=== PATIENT | female | born 1970 | race Caucasian/White ===

== ENCOUNTER 2020-10-06 08:30 | Outpatient (REF) | payer BC, SELFPAY ==
--- NOTE | ~2020-10-06 | MM_ITS ---
EXAMINATION: MM SCREENING DIGITAL BREAST TOMOSYNTHESIS, BILATERAL CLINICAL INFORMATION: Screening. Asymptomatic. The lifetime risk of breast cancer based on the Tyrer-Cuzick Model is 6.6%. COMPARISON: Mammography: August 11, 2019 and studies dating back to April 15, 2012 TECHNIQUE: Digital breast tomosynthesis is performed in both the craniocaudal and mediolateral oblique views along with computer-aided detection (CAD). Synthesized 2D images are generated from the tomosynthesis. FINDINGS: The breasts are heterogeneously dense, which may obscure small masses (ACR BI-RADS breast composition Category c). There are no significant masses, abnormal calcifications, or other abnormalities. MM/MM tomosynthesis screening BI IMPRESSION: There are no significant changes from prior study. ASSESSMENT: BI-RADS 1: Negative RECOMMENDATION: Routine annual mammography screening. This patient's information was entered into a reminder system with a target due date for their next mammogram.
== END 2020-10-06 08:31 | disposition home or self-care (01) ==
LOC: HO.MAMMO 08:30
PROVIDERS: Visit Provider Internal Medicine
DX: Z12.31 Encounter for screening mammogram for malignant neoplasm of breast (principal)
CPT/HCPCS: 77063; 77067

== ENCOUNTER 2021-06-14 19:57 | Emergency (ER) | payer OTHER, BC, SELFPAY ==
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
[2021-06-14 20:04] VITALS: BP 128/86; BP 130/76; PULSE 76; PULSE 89; RESP 16; TEMP 36.8; O2SAT 100; O2SAT 98; BMI 26.9
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
--- NOTE | 2021-06-14 20:34 | PC.NURSE ---
pt a&o, no sob or chest pain. pt oob with a slight unsteady gait. Attempted to collected urine, pt unable to collect at this time. Pt gone to CT-Scan.
[2021-06-14 21:13] VITALS: BP 134/55; PULSE 72; RESP 14; TEMP 36.7; O2SAT 99
--- NOTE | 2021-06-14 21:23 | PC.NURSE ---
UNABLE TO COLLECTED URINE . PROVIDER IS AWARE. WILL MEDICATE PER MAR.
[2021-06-14] MEDS: Cyclobenzaprine HCl 10 MG TABLET PO (21:28)
[2021-06-14] MEDS: Ketorolac Tromethamine 60 MG/2 ML VIAL IM (21:28)
== END 2021-06-14 21:40 | disposition home or self-care (01) ==
PROVIDERS: Emergency Provider Internal Medicine
DX: S06.0X0A Concussion without loss of consciousness, initial encounter (principal); S39.012A Strain of muscle, fascia and tendon of lower back, initial encounter; S16.1XXA Strain of muscle, fascia and tendon at neck level, initial encounter; V49.9XXA Car occupant (driver) (passenger) injured in unspecified traffic accident, initial encounter; Y93.9 Activity, unspecified; Y92.410 Unspecified street and highway as the place of occurrence of the external cause; Y99.9 Unspecified external cause status
CPT/HCPCS: 70450; 72100; 72125; 96372; 99284; J1885

== ENCOUNTER 2021-12-04 13:52 | Outpatient (REF) | payer BC, SELFPAY ==
--- NOTE | ~2021-12-04 | MM_ITS ---
EXAMINATION: MM SCREENING DIGITAL BREAST TOMOSYNTHESIS, BILATERAL CLINICAL INFORMATION: Screening. Asymptomatic. The lifetime risk of breast cancer based on the Tyrer-Cuzick Model is 7%. COMPARISON: Mammography: 10/06/2020, 08/11/2019, 07/08/2018 TECHNIQUE: Digital breast tomosynthesis is performed in both the craniocaudal and mediolateral oblique views along with computer-aided detection (CAD). Synthesized 2D images are generated from the tomosynthesis. FINDINGS: The breasts are heterogeneously dense, which may obscure small masses (ACR BI-RADS breast composition Category c). There are no significant masses, abnormal calcifications, or other abnormalities. No significant changes from prior studies. No architectural abnormality. The axilla and skin contours are unremarkable. MM/MM tomosynthesis screening BI IMPRESSION: No mammographic evidence of malignancy. ASSESSMENT: BI-RADS 1: Negative RECOMMENDATION: Routine annual mammography screening. This patient's information was entered into a reminder system with a target due date for their next mammogram.
== END 2021-12-04 13:53 | disposition home or self-care (01) ==
LOC: HO.MAMMO 13:52
DX: Z12.31 Encounter for screening mammogram for malignant neoplasm of breast (principal)
CPT/HCPCS: 77063; 77067

== ENCOUNTER 2022-06-01 11:50 | Outpatient (REF) | payer BC, SELFPAY ==
[2022-06-01 12:30] LABS: MANUAL DIFF FLAG NO
[2022-06-01 13:26] LABS: Basophils Percent Auto 0.5 % (0-2); Eosinophils Absolute Auto 0.1 X10*3/uL (0.0-0.4); Eosinophils Percent Auto 0.9 % (0-4); Hematocrit 40.5 % (37.0-47.0); Hemoglobin 13.5 g/dl (12.0-16.0); Imm Gran Abs Auto 0.02 X10*3/uL (0.00-0.03); Imm Gran Pct Auto 0.3 % (0.0-0.4); Lymphocytes Absolute Auto 1.6 X10*3/uL (1.2-4.9); Mean Corpuscular HGB Conc 33.3 g/dl (31.0-35.0); Mean Corpuscular Hemoglobin 32.2 pg (27.0-33.0); Mean Corpuscular Volume 96.7 fL (80.0-98.0); Mean Platelet Volume 9.4 fL (9.4-12.3); Monocytes Absolute Auto 0.7 X10*3/uL (0.1-1.2); Neutrophils Absolute Auto 4.1 x10*3/uL (2.0-8.3); Neutrophils Percent Auto 63.3 % (45-73); Platelet Count 316 X10*3/uL (160-400); Red Blood Count 4.19 X10*6/uL (4.20-5.50); Red Cell Distribution Width 12.2 % (11.0-16.0); White Blood Count 6.5 X10*3/uL (4.8-10.8)
[2022-06-01 13:32] LABS: Appearance Urine Clear; Color Urine Yellow; Glucose Urine UA Negative (Negative); Leukocyte Esterase Urine Negative (Negative); Nitrite Urine Negative (Negative); UMIC TRIGGER UA YES; Urine Blood Trace (Negative); Urine Ketones Negative (Negative); Urine Protein Negative (Neg-Trace)
[2022-06-01 13:37] LABS: Estimated Average Glucose 108 mg/dL; Hemoglobin A1c % 5.4 %
[2022-06-01 13:38] LABS: Bacteria Urine Trace (None Seen); Hyaline Casts Urine 0-2 /LPF (0-2); RBC Urine 0-2 /HPF (0-2); WBC Urine 0-5 /HPF (0-5)
[2022-06-01 13:50] LABS: Alanine Aminotransferase 15 U/L (0-31); Albumin Level 4.6 g/dL (3.5-5.0); Alkaline Phosphatase 65 U/L (39-117); Anion Gap 14 (12-20); Aspartate Amino Transferase 21 U/L (5-31); Bilirubin Total 0.7 mg/dL (0.0-1.0); Blood Urea Nitrogen 12 mg/dL (9-16); C Reactive Protein 0.08 mg/dL (< or = 0.50); Carbon Dioxide 24 mmol/L (22-29); Chloride 104 mmol/L (96-108); Estimated Glomerular Filt Rate > 60; Glucose Random 83 mg/dL (60-115); Lactate Dehydrogenase 180 U/L (122-220); Potassium 4.4 mmol/L (3.3-5.1); Rheumatoid Factor < 15.0 IU/mL (<15.0); Sodium 138 mmol/L (135-145); Total Protein 8.5 g/dL (6.5-8.0)
[2022-06-01 14:07] LABS: Total Protein Urine Random < 7 mg/dL (<12)
[2022-06-01 14:10] LABS: Erythrocyte Sedimentation Rate 11 MM/HR (0-20)
[2022-06-01 14:10] LABS: Thyroid Stimulating Hormone 1.19 uIU/mL (0.32-4.0)
[2022-06-04 09:41] LABS: Thyroid Peroxidase Antibodies 1 IU/mL (<9)
[2022-06-04 11:11] LABS: Complement C3 142 mg/dL (83-193)
[2022-06-04 14:27] LABS: Prot Elec - Albumin 4.7 g/dL (3.8-4.8); Prot Elec - Alpha1 0.3 g/dL (0.2-0.3); Prot Elec - Alpha2 0.7 g/dL (0.5-0.9); Prot Elec - Beta 1 0.5 g/dL (0.4-0.6); Prot Elec - Beta 2 0.4 g/dL (0.2-0.5); Prot Elec - Gamma 1.8 g/dL (0.8-1.7); Prot Elec - Total Protein 8.3 g/dL (6.1-8.1)
[2022-06-04 15:06] LABS: IgA 313 mg/dL (47-310); IgG 2125 mg/dL (600-1640); IgM 46 mg/dL (50-300)
[2022-06-04 15:21] LABS: Anti-Centromere B Antibodies <1.0 NEG AI (<1.0 NEG)
[2022-06-05 05:43] LABS: Anti DNA DS Antibody 3 IU/mL; Antibody to SS-A Antigen <1.0 NEG AI (<1.0 NEG); Antibody to SS-B Antigen <1.0 NEG AI (<1.0 NEG); Cardiolipin IgG Ab <2.0 GPL-U/mL; Cardiolipin IgM Ab <2.0 MPL-U/mL; SM/Ribonucleoprotein Ab <1.0 NEG AI (<1.0 NEG); Scleroderma 70 Antibody <1.0 NEG AI (<1.0 NEG); Smith Protein <1.0 NEG AI (<1.0 NEG)
[2022-06-05 12:31] LABS: Cyclic Citrullinated Peptide <16 UNITS
[2022-06-06 14:47] LABS: Anti Nuclear Antibody Screen NEGATIVE (NEGATIVE)
[2022-06-06 23:58] LABS: Beta-2 Glycoprotein IgA <2.0 U/mL (<20.0); Beta-2 Glycoprotein IgG <2.0 U/mL (<20.0); Beta-2 Glycoprotein IgM <2.0 U/mL (<20.0)
[2022-06-07 06:22] LABS: PTT (LAC) Screen 31 sec (<=40)
[2022-06-07 12:06] LABS: HLA B27 Negative (Negative)
[2022-06-07 22:16] LABS: Aldolase 3.2 U/L (<=8.1)
[2022-06-08 12:02] LABS: Thyroglobulin Antibodies 7 IU/mL (< or = 1)
== END 2022-06-01 11:51 | disposition home or self-care (01) ==
LOC: HO.LAB 11:50
PROVIDERS: Visit Provider Student in an Organized Health Care Education/Training Program
DX: G72.9 Myopathy, unspecified (principal); G62.9 Polyneuropathy, unspecified; R76.8 Other specified abnormal immunological findings in serum; M25.572 Pain in left ankle and joints of left foot
CPT/HCPCS: 80053; 81001; 82085; 82550; 82784; 83036; 83516; 83520; 83615; 84156; 84165; 84182; 84443; 85025; 85597; 85613; 85652; 85730; 86038; 86039; 86140; 86146; 86147; 86160; 86200; 86225; 86235; 86334; 86376; 86431; 86800; 86812

== ENCOUNTER 2022-06-21 14:47 | Outpatient (REF) | payer BC, SELFPAY ==
--- NOTE | ~2022-06-21 | MR_ITS ---
EXAMINATION: MR HUMERUS WITHOUT AND WITH CONTRAST, LEFT CLINICAL INFORMATION: Left arm pain and numbness. COMPARISON: MRI right shoulder 09/16/2021. TECHNIQUE: MRI of the left humerus is performed without and with intravenous administration of 6 mL of Gadavist on a 1.5 Piper MR scanner. FINDINGS: Bone marrow signal is normal. No acute osseous abnormality or bone lesion. No abnormal enhancement. No glenohumeral joint effusion. No obvious rotator cuff tear although evaluation is limited due to the large [id number]. No muscle strain or tear. No muscle atrophy. No adenopathy. MR/MR humerus LT wo/w con IMPRESSION: Unremarkable examination.
== END 2022-06-21 14:48 | disposition home or self-care (01) ==
LOC: HO.MRI 14:47
PROVIDERS: Visit Provider Student in an Organized Health Care Education/Training Program
DX: G72.9 Myopathy, unspecified (principal); M79.602 Pain in left arm; R20.0 Anesthesia of skin
CPT/HCPCS: 73220; A9585

== ENCOUNTER → 2022-06-25 09:59 | Outpatient (REF) | payer BC, SELFPAY ==
--- NOTE | ~2022-06-25 | NM_ITS ---
EXAMINATION: NM BONE SCAN OF THE WHOLE BODY CLINICAL INFORMATION: Pain left ankle, left foot and left humerus. Complex regional pain syndrome suspected. COMPARISON: Chest x-ray 06/14/2021 TECHNIQUE: Multiple gamma scintillation camera images of the whole body were performed 3 hours following the intravenous administration of 23 mCi Tc-99m MDP. FINDINGS: In the head, no abnormal metabolic activity seen in the calvarium or the scalp. In the thoracic cage and upper extremities, no abnormal activity seen in thoracic spine or thoracic cage. Nonspecific mild increase activity seen in right hand 2nd MCP joint and left proximal 2nd, 3rd and 4th metacarpals. No additional abnormal activity seen in the upper extremities. In the spine, no abnormal activity seen in the entire spine. In the pelvis, no abnormal metabolic activity seen In the lower extremities, there is mild increased activity seen in the right ankle. No abnormal activity seen in the left ankle and left foot. No other definite bony abnormalities are noted. The urinary bladder and faint visualization of both kidneys are noted. TN/TN bone scan whole body IMPRESSION: 1. Nonspecific mild increase activity seen in the right hand 2nd MCP joint and left proximal 2nd, 3rd and 4th metacarpals. Also visualized is mild activity in the right ankle. These could be related to mild inflammatory arthritis. 2. No abnormal activity seen in the left foot, left ankle or left humerus where patient complains of pain.
== END ==
LOC: HO.NUCMED 09:59
PROVIDERS: Visit Provider Student in an Organized Health Care Education/Training Program
DX: M25.572 Pain in left ankle and joints of left foot (principal); M79.602 Pain in left arm
CPT/HCPCS: 78306; A9503

== ENCOUNTER 2022-11-08 13:16 | Emergency (ER) | payer BC, MEDICAID, SELFPAY ==
--- NOTE | 2022-11-08 13:53 | ED_ITS ---
HPI - Ear Problem General Chief complaint: Ear Problems <HAYES Boateng Last Filed: 11/08/22 13:58> Stated complaint: L ear problems <HAYES Boateng Last Filed: 11/08/22 13:58> Time Seen by Provider: 11/08/22 15:10 <HAYES Boateng Last Filed: 11/08/22 13:58> Source: patient and RN notes reviewed <HAYES Root Last Filed: 11/08/22 17:25> Mode of arrival: ambulatory <HAYES Root Last Filed: 11/08/22 17:25> Limitations: no limitations <HAYES Root Last Filed: 11/08/22 17:25> History of Present Illness HPI Narrative: This is a 52-year-old female, with a past medical history of complex regional pain syndrome and vertigo, who presents to the emergency department today with complaints of worsening vertigo, left ear popping, and decreased hearing out of the left ear x2 weeks. Patient reports that she was seen by her primary care physician on Saturday who advised her to use Debrox ear drops and to follow-up with an ENT specialist. She has had no relief from the ear drops. Patient reports that she has called the ENT office however they have not returned her phone call. She reports that her vertigo has worsened since the onset of her symptoms, and is not responding to meclizine. Denies visual changes, headaches, fevers, chills, dizziness, weakness, numbness, tingling, sore throat, cough, chest pain, palpitations, nausea, vomiting, or diarrhea. No other complaints or concerns at this time. <HAYES Root Last Filed: 11/08/22 17:25> MD Complaint: decreased hearing <HAYES Root Last Filed: 11/08/22 17:25> Location: left ear <HAYES Root Last Filed: 11/08/22 17:25> Duration: constant <HAYES Root Last Filed: 11/08/22 17:25> Severity: mild <HAYES Root Last Filed: 11/08/22 17:25> Relieving factors: nothing <HAYES Root Last Filed: 11/08/22 17:25> Exacerbating factors: nothing <HAYES Root Last Filed: 11/08/22 17:25> Discharge from ear: no <HAYES Root - Last Filed: 11/08/22 17:25> Treatment prior to arrival: eardrops <HAYES Root Last Filed: 11/08/22 17:25> Related Data Home medications: Home Medications Medication Instructions Recorded Confirmed cholecalciferol (vitamin D3) 50 50 mcg PO DAILY 06/01/22 mcg (2,000 unit) tablet clonidine HCl 0.2 mg tablet 0.2 mg PO DAILY 06/01/22 gabapentin 300 mg capsule 300 mg PO BEDTIME PRN pain 06/01/22 ibuprofen 800 mg tablet 800 mg PO Q8H PRN pain 06/01/22 lorazepam 1 mg tablet 1 mg PO BID 06/01/22 Previous Rx's Medication Instructions Recorded duloxetine 20 mg capsule,delayed 20 mg PO BID 30 days #60 caps 07/18/22 release <HAYES Boateng - Last Filed: 11/08/22 13:58> Allergies/adverse reactions: Allergies Allergy/AdvReac Type Severity Reaction Status Date / Time acetaminophen AdvReac Unknown Nausea and Verified 07/18/22 11:30 [From Tylenol-Codeine #3] Vomiting avocado AdvReac Unknown Unknown Verified 07/18/22 11:30 codeine AdvReac Unknown Nausea and Verified 07/18/22 11:30 [From Tylenol-Codeine #3] Vomiting Seasonal Allergies AdvReac Unknown Unknown Verified 07/18/22 11:30 <HAYES Boateng - Last Filed: 11/08/22 13:58> Review of Systems 2 Review of Systems: Yes all other systems are reviewed and are negative <HAYES Root Last Filed: 11/08/22 17:25> [facility] Past Medical History Attestation statement: The following information was validated with the patient. <AHYES Boateng Last Filed: 11/08/22 13:58> Source: old records reviewed and nursing notes reviewed <HAYES Boateng Last Filed: 11/08/22 13:58> Medical History: Medical History Anxiety Complex regional pain syndrome <HAYES Boateng - Last Filed: 11/08/22 13:58> Surgical History: Surgical History History of 2 sections <HAYES Boateng - Last Filed: 11/08/22 13:58> Family History Family History: Family History Family/Other Lupus Multiple sclerosis, Onset Age: 40 Maternal Aunt Rheumatoid arthritis Father Diabetes, Onset Age: 70 Mother Hypertension COPD (chronic obstructive pulmonary disease) <HAYES Boateng - Last Filed: 11/08/22 13:58> Social History Social History: Social History Household Members: Spouse Alcohol intake: current Alcohol intake frequency: does not drink Patient Tobacco Use Status: Never used Tobacco Advance Directives: No Advance Directives Information Provided: No Current occupational status: employed 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 <HAYES Boateng - Last Filed: 11/08/22 13:58> Physical Exam Vital Signs: Vital Signs: Last Vital Signs Temp 98 F 11/08/22 13:56 Pulse 79 11/08/22 13:56 Resp 16 11/08/22 13:56 BP 138/90 H 11/08/22 13:56 Pulse Ox 96 11/08/22 13:56 O2 Del Method Room Air 11/08/22 13:56 BMI result Body Mass Index 27.8 vss <HAYES Boateng - Last Filed: 11/08/22 13:58> Vital Signs: Last Vital Signs Temp 98 F 11/08/22 13:56 Pulse 79 11/08/22 13:56 Resp 16 11/08/22 13:56 BP 138/90 H 11/08/22 13:56 Pulse Ox 96 11/08/22 13:56 O2 Del Method Room Air 11/08/22 13:56 BMI result Body Mass Index 27.8 <HAYES Root - Last Filed: 11/08/22 17:25> Appearance: Alert.? Oriented X3.? No acute distress.? Head: Normocephalic, atraumatic, no step-offs or deformities Eyes: Pupils equal, round and reactive to light.? ENT: Pharynx normal.? Neck: Normal inspection.? Neck supple.? CVS: Normal heart rate and rhythm.? Pulses normal.? Respiratory: No respiratory distress.? Breath sounds normal.? Abdomen: Soft and nontender.? Skin: Skin warm and dry.? Normal skin color.? Normal skin turgor.? Extremities: No lower extremity edema.? No calf ttp. 5/5 strength to bilateral upper and lower extremities Neuro: Oriented X 3.? No motor deficit.? No sensory deficit. CN 2-12 intact <HAYES Boateng - Last Filed: 11/08/22 13:58> Appearance: Alert.? Oriented X3.? No acute distress.? Head: Normocephalic, atraumatic, no step-offs or deformities Eyes: Pupils equal, round and reactive to light.?EOMI ENT: Pharynx normal.? Left ear TM is obscured by significant left ear cerumen impaction. Post irrigation, left TM is intact nonerythematous, nonbulging. Light reflex in tact. Right TM and ear canal unremarkable. Neck: Normal inspection.? Neck supple.? CVS: Normal heart rate and rhythm.? Pulses normal.? Respiratory: No respiratory distress.? Breath sounds normal.? Lungs clear to auscultation bilaterally. Abdomen: Soft and nontender.? Skin: Skin warm and dry.? Normal skin color.? Normal skin turgor.? Extremities: No lower extremity edema.? 5/5 strength to bilateral upper and lower extremities Neuro: Oriented X 3.? No motor deficit.? No sensory deficit. CN 2-12 intact <HAYES Root - Last Filed: 11/08/22 17:25> Course Course Course Narrative: This is an RME: Additional HPI, ROS, PE not included below will be deferred to primary provider. 52-year-old female history of vertigo, MIGUEL positive, reflex sympathetic dystrophy, chronic pain syndrome presenting to the emergency department for evaluation of discomfort to left ear, patient feels as though her left ear is clogged and she hears it popping intermittently X1 month. Patient tells me she has been battling vertigo for a while and has been seen by her PCP for this was sent to a specialist ENT however appointment is not for a few months. Patient reports vertigo is still present and meclizine not helping. Denies fevers, chills, chest pain, shortness of breath, nausea, vomiting, chest pain, sore throat, headache, vision changes. Physical exam benign. NIH stroke scale 0. I do not suspect posterior stroke. Likely vertigo. Plan basic labs, will give meclizine and diazepam. <HAYES Boateng - Last Filed: 11/08/22 13:58> Medications Administered Discontinued Medications Generic Name Dose Route Start Last Admin Trade Name Freq PRN Reason Stop Dose Admin Docusate Sodium 100 mg 11/08/22 15:27 11/08/22 15:41 Docusate Sodium 100 Mg/10 Ml Liquid PO 11/08/22 15:28 100 mg ONCE ONE Administration Sodium Chloride 1,000 mls @ 999 mls/hr 11/08/22 14:00 11/08/22 15:34 Ns IV 11/08/22 15:00 Not Given .Q1H1M HAYDEN Meclizine HCl 25 mg 11/08/22 16:34 11/08/22 16:39 Meclizine Hcl 25 Mg Tablet PO 11/08/22 16:35 25 mg ONCE ONE Administration <HAYES Boateng - Last Filed: 11/08/22 13:58> Medications Administered Discontinued Medications Generic Name Dose Route Start Last Admin Trade Name Freq PRN Reason Stop Dose Admin Docusate Sodium 100 mg 11/08/22 15:27 11/08/22 15:41 Docusate Sodium 100 Mg/10 Ml Liquid PO 11/08/22 15:28 100 mg ONCE ONE Administration Sodium Chloride 1,000 mls @ 999 mls/hr 11/08/22 14:00 11/08/22 15:34 Ns IV 11/08/22 15:00 Not Given .Q1H1M HAYDEN Meclizine HCl 25 mg 11/08/22 16:34 11/08/22 16:39 Meclizine Hcl 25 Mg Tablet PO 11/08/22 16:35 25 mg ONCE ONE Administration <Lizette Painting PA - Last Filed: 11/08/22 17:25> Procedures Ear Wax Removal Left Ear: Cerumenolytic Used: Colace <Lizette Painting PA - Last Filed: 11/08/22 17:25> Results: Re-examined: cerumen removed completely <Lizette Painting PA - Last Filed: 11/08/22 17:25> TM Examination: TM(s) intact, normal appearance <Lizette Painting PA - Last Filed: 11/08/22 17:25> Ear Canal Exam: atraumatic <Lizette Painting PA - Last Filed: 11/08/22 17:25> Patient Tolerated Procedure: well and no complications <Lizette Painting PA - Last Filed: 11/08/22 17:25> Complications: no problems <Lizette Painting PA - Last Filed: 11/08/22 17:25> Technique: ear canal irrigated <Lizette Painting PA - Last Filed: 11/08/22 17:25> Additional Comments: Left ear was soaked in Colace for 20 minutes. Left ear irrigated with warm water and hydrogen peroxide. Copious amount of cerumen was expressed from left ear canal. Left TM was intact and nonerythematous, nonbulging. Patient tolerated procedure well without any complications or concerns. <Lizette Painting PA - Last Filed: 11/08/22 17:25> Medical Decision Making Medical Decision Making MDM Narrative: This is a 52-year-old female who presents to the emergency department for evaluation of left ear popping, decreased hearing out of her left ear, and worse michael vertigo x2 weeks. Patient was seen by her primary care physician and was advised to use Debrox ear drops and follow up with a ENT specialist. Patient states that she attempted to call the [facility] office but is unable to see them for several months. On examination left ear canal with copious amount of cerumen noted, TM is obscured. Cerumen successfully removed from left ear canal with irrigation, see procedure note. Patient tolerated procedure well without any complications or concerns. Well her labs reviewed and are nondiagnostic today. Patient feeling much better, and her symptoms have resolved. Patient requesting to be discharged, patient is stable for discharge. <Lizette AgustinHAYES garcia - Last Filed: 11/08/22 17:25> Differential Diagnosis Differential Diagnoses: The differential diagnosis associated with the presentation includes <Lizette PaintingHAYES - Last Filed: 11/08/22 17:25> Left cerumen impaction, left otitis media, left otitis externa, TM perforation, vertigo <Lizette Agustinradha PA - Last Filed: 11/08/22 17:25> Lab Data Result Diagrams: 11/08/22 14:03 11/08/22 14:03 <Ryan Miller PA - Last Filed: 11/08/22 13:58> Labs: Lab Results 11/08/22 11/08/22 Range/Units 14:03 14:03 WBC 7.1 (4.8-10.8) X10*3/uL RBC 3.98 L (4.20-5.50) X10*6/uL Hgb 12.6 (12.0-16.0) g/dl Hct 38.3 (37.0-47.0) % MCV 96.2 (80.0-98.0) fL MCH 31.7 (27.0-33.0) pg MCHC 32.9 (31.0-35.0) g/dl RDW 12.2 (11.0-16.0) % Plt Count 261 (160-400) X10*3/uL MPV 9.2 L (9.4-12.3) fL Immature Gran % (Auto) 0.3 (0.0-0.4) % Neut % (Auto) 69.0 (45-73) % Lymph % (Auto) 19.5 L (20-40) % Stone % (Auto) 10.0 (2-11) % Eos % (Auto) 0.8 (0-4) % Baso % (Auto) 0.4 (0-2) % Lymph # (Auto) 1.4 (1.2-4.9) X10*3/uL Stone # (Auto) 0.7 (0.1-1.2) X10*3/uL Eos # (Auto) 0.1 (0.0-0.4) X10*3/uL Baso # (Auto) 0.0 (0.0-0.2) X10*3/uL Abs Immat Gran (auto) 0.02 (0.00-0.03) X10*3/uL Absolute Neuts (auto) 4.9 (2.0-8.3) x10*3/uL Absolute Nucleated RBC 0.000 (0.0-0.012) X10*3/uL Nucleated RBC % (auto) 0.0 (0.0-0.2) /100WBC Sodium 142 (135-145) mmol/L Potassium 4.5 (3.3-5.1) mmol/L Chloride 107 (96-108) mmol/L Carbon Dioxide 26 (22-29) mmol/L Anion Gap 14 (12-20) BUN 16 (9-16) mg/dL Creatinine 0.91 (0.5-1.4) mg/dL Estim Creat Clear Calc 58.1 Estimated GFR > 60 Random Glucose 70 (60-115) mg/dL Calcium 9.3 D (8.4-10.2) mg/dL Total Bilirubin 0.4 (0.0-1.0) mg/dL AST 17 (5-31) U/L ALT 12 (0-31) U/L Alkaline Phosphatase 68 (39-117) U/L Total Protein 7.2 (6.5-8.0) g/dL Albumin 3.9 (3.5-5.0) g/dL <HAYES Boateng - Last Filed: 11/08/22 13:58> Lab Results 11/08/22 11/08/22 Range/Units 14:03 14:03 WBC 7.1 (4.8-10.8) X10*3/uL RBC 3.98 L (4.20-5.50) X10*6/uL Hgb 12.6 (12.0-16.0) g/dl Hct 38.3 (37.0-47.0) % MCV 96.2 (80.0-98.0) fL MCH 31.7 (27.0-33.0) pg MCHC 32.9 (31.0-35.0) g/dl RDW 12.2 (11.0-16.0) % Plt Count 261 (160-400) X10*3/uL MPV 9.2 L (9.4-12.3) fL Immature Gran % (Auto) 0.3 (0.0-0.4) % Neut % (Auto) 69.0 (45-73) % Lymph % (Auto) 19.5 L (20-40) % Stone % (Auto) 10.0 (2-11) % Eos % (Auto) 0.8 (0-4) % Baso % (Auto) 0.4 (0-2) % Lymph # (Auto) 1.4 (1.2-4.9) X10*3/uL Stone # (Auto) 0.7 (0.1-1.2) X10*3/uL Eos # (Auto) 0.1 (0.0-0.4) X10*3/uL Baso # (Auto) 0.0 (0.0-0.2) X10*3/uL Abs Immat Gran (auto) 0.02 (0.00-0.03) X10*3/uL Absolute Neuts (auto) 4.9 (2.0-8.3) x10*3/uL Absolute Nucleated RBC 0.000 (0.0-0.012) X10*3/uL Nucleated RBC % (auto) 0.0 (0.0-0.2) /100WBC Sodium 142 (135-145) mmol/L Potassium 4.5 (3.3-5.1) mmol/L Chloride 107 (96-108) mmol/L Carbon Dioxide 26 (22-29) mmol/L Anion Gap 14 (12-20) BUN 16 (9-16) mg/dL Creatinine 0.91 (0.5-1.4) mg/dL Estim Creat Clear Calc 58.1 Estimated GFR > 60 Random Glucose 70 (60-115) mg/dL Calcium 9.3 D (8.4-10.2) mg/dL Total Bilirubin 0.4 (0.0-1.0) mg/dL AST 17 (5-31) U/L ALT 12 (0-31) U/L Alkaline Phosphatase 68 (39-117) U/L Total Protein 7.2 (6.5-8.0) g/dL Albumin 3.9 (3.5-5.0) g/dL <HAYES Root - Last Filed: 11/08/22 17:25> Critical Care Time Critical Care Time Critical Care Time: No <HAYES Root - Last Filed: 11/08/22 17:25> Discharge Plan Discharge Clinical Impression: Cerumen impaction <HAYES Boategn Last Filed: 11/08/22 13:58> Patient Disposition: Home, Self-Care <HAYES Boateng Last Filed: 11/08/22 13:58> Instructions: Carbamide Peroxide (Into the ear) <HAYES Boateng Last Filed: 11/08/22 13:58> Additional Instructions: You had ear wax removed from your left ear canal today. Avoid using Q-tips. You can clean out your ears every time you shower to prevent this from happening in the future. You may use debrox ear drops as needed. If any new or worsening symptoms occur, please return for re-evaluation. <HAYES Boateng Last Filed: 11/08/22 13:58> Prescriptions: No Action ibuprofen 800 mg tablet 800 mg PO Q8H PRN (Reason: pain) gabapentin 300 mg capsule 300 mg PO BEDTIME PRN (Reason: pain) cholecalciferol (vitamin D3) 50 mcg (2,000 unit) tablet 50 mcg PO DAILY lorazepam 1 mg tablet 1 mg PO BID clonidine HCl 0.2 mg tablet 0.2 mg PO DAILY duloxetine 20 mg capsule,delayed release(DR/EC) 20 mg PO BID 30 Days Qty: 60 8RF <HAYES Boateng - Last Filed: 11/08/22 13:58> Interventions: ED Discharge Assessment Last Done: 11/08/22 16:41 <HAYES Boateng Last Filed: 11/08/22 13:58> Discharge Date/Time: 11/08/22 16:41 <HAYES Boateng Last Filed: 11/08/22 13:58>
[2022-11-08 13:56] VITALS: BP 138/90; PULSE 79; RESP 16; TEMP 36.6; O2SAT 96; BMI 27.8
[2022-11-08 14:13] LABS: Basophils Percent Auto 0.4 % (0-2); Eosinophils Absolute Auto 0.1 X10*3/uL (0.0-0.4); Eosinophils Percent Auto 0.8 % (0-4); Hematocrit 38.3 % (37.0-47.0); Hemoglobin 12.6 g/dl (12.0-16.0); Imm Gran Abs Auto 0.02 X10*3/uL (0.00-0.03); Imm Gran Pct Auto 0.3 % (0.0-0.4); Lymphocytes Absolute Auto 1.4 X10*3/uL (1.2-4.9); Lymphocytes Percent Auto 19.5 % (20-40); MANUAL DIFF FLAG NO; Mean Corpuscular HGB Conc 32.9 g/dl (31.0-35.0); Mean Corpuscular Hemoglobin 31.7 pg (27.0-33.0); Mean Corpuscular Volume 96.2 fL (80.0-98.0); Mean Platelet Volume 9.2 fL (9.4-12.3); Monocytes Absolute Auto 0.7 X10*3/uL (0.1-1.2); Neutrophils Absolute Auto 4.9 x10*3/uL (2.0-8.3); Platelet Count 261 X10*3/uL (160-400); Red Blood Count 3.98 X10*6/uL (4.20-5.50); Red Cell Distribution Width 12.2 % (11.0-16.0); White Blood Count 7.1 X10*3/uL (4.8-10.8)
[2022-11-08 14:49] LABS: Alanine Aminotransferase 12 U/L (0-31); Albumin Level 3.9 g/dL (3.5-5.0); Alkaline Phosphatase 68 U/L (39-117); Anion Gap 14 (12-20); Aspartate Amino Transferase 17 U/L (5-31); Bilirubin Total 0.4 mg/dL (0.0-1.0); Blood Urea Nitrogen 16 mg/dL (9-16); Calcium 9.3 mg/dL (8.4-10.2); Carbon Dioxide 26 mmol/L (22-29); Chloride 107 mmol/L (96-108); Creatinine Clr Calc Pharmacy 58.1; Estimated Glomerular Filt Rate > 60; Glucose Random 70 mg/dL (60-115); Potassium 4.5 mmol/L (3.3-5.1); Sodium 142 mmol/L (135-145); Total Protein 7.2 g/dL (6.5-8.0)
[2022-11-08] MEDS: Docusate Sodium 100 MG/10 ML LIQUID PO (15:41)
[2022-11-08] MEDS: Meclizine HCl 25 MG TABLET PO (16:39)
== END 2022-11-08 16:41 | disposition home or self-care (01) ==
PROVIDERS: Physician Assistant; Emergency Provider Emergency Medicine; PCP Internal Medicine
DX: R42 Dizziness and giddiness (principal); H61.22 Impacted cerumen, left ear; Z79.899 Other long term (current) drug therapy
CPT/HCPCS: 36415; 69209; 80053; 85025; 99282; 99283

== ENCOUNTER 2022-12-17 12:00 | Outpatient (RCR) | payer BC, MEDICAID, SELFPAY ==
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
--- NOTE | 2023-01-10 08:38 | MHC.PT.DC ---
[facility] [place] [facility] [place] [facility] [place] [facility] [address] Tejas Rueda [address] [phone] F: [phone] F: [phone] F: [phone] F: [phone] Physical Therapy Discharge Report Diagnosis: Complex regional pain syndrome L LE and left lower extremity Date of Surgery: NA Date of Evaluation: 11/30/22 Date of Discharge: 01/10/23 Treatments to Date: 5 Cancellations to Date: 0 No Shows to Date: 4 Discharge Status: Visit Non-compliance Discharge Summary: Jeri no showed her last 4 visits. She is therefore being d/c from PT for non compliance. Electronically signed by: Rajani Godoy PT DPT Please sign and return to therapist. Thank you for your referral.
== END 2023-01-10 08:38 | disposition home or self-care (01) ==
LOC: HO.PT 12:00
PROVIDERS: PCP Internal Medicine; Visit Provider Student in an Organized Health Care Education/Training Program
DX: G90.512 Complex regional pain syndrome I of left upper limb (principal); G90.522 Complex regional pain syndrome I of left lower limb
CPT/HCPCS: 97110; 97116; 97162; 97530

== ENCOUNTER → 2022-12-19 14:24 | Outpatient (BNVA) | payer BC, MEDICAID, SELFPAY | PROVIDERS: PCP Internal Medicine; Visit Provider Student in an Organized Health Care Education/Training Program ==

== ENCOUNTER → 2023-01-11 12:03 | Outpatient (BNVA) | payer BC, MEDICAID, SELFPAY | PROVIDERS: PCP Internal Medicine; Visit Provider Student in an Organized Health Care Education/Training Program ==

== ENCOUNTER 2023-03-12 13:50 | Outpatient (REF) | payer BC, MEDICAID, SELFPAY ==
--- NOTE | ~2023-03-12 | MR_ITS ---
EXAMINATION: MR BRAIN WITHOUT AND WITH CONTRAST CLINICAL INFORMATION: Parkinson's disease. Left-sided hemiparesis. COMPARISON: None. TECHNIQUE: Multiplanar, multisequence imaging of the brain was performed before and after the intravenous administration of 6 mL of Gadavist. FINDINGS: No diffusion abnormalities are identified to suggest an acute infarct. The ventricles are normal in size. No mass effect or midline shift is seen. No brain parenchymal signal abnormality is noted. No extra-axial fluid collections are seen. The brainstem and cerebellum are normal. On postcontrast imaging, there is no abnormal parenchymal or leptomeningeal enhancement. The gradient refocused acquisition demonstrates no pathologic magnetic susceptibility artifact to indicate underlying acute or chronic blood products. The craniovertebral junction, marrow signal, and midline structures are normal. The major intracranial flow voids at the level of the [place] of [place] are preserved. The dural venous sinus flow voids are maintained. The mastoid air cells and paranasal sinuses are well aerated. MR/MR head/brain wo/w con IMPRESSION: No acute intracranial process. No abnormal enhancement.
== END 2023-03-12 13:51 | disposition home or self-care (01) ==
LOC: HO.MRI 13:50
PROVIDERS: PCP Internal Medicine; Visit Provider Psychiatry & Neurology Neurology
DX: G20 Parkinson's disease (principal); G81.94 Hemiplegia, unspecified affecting left nondominant side
CPT/HCPCS: 70553; A9585

== ENCOUNTER 2023-03-26 08:47 | Outpatient (RCR) | payer BC, MEDICAID, SELFPAY ==
[2023-03-26 08:55] VITALS: BP 121/75; PULSE 66
== END 2023-05-10 15:34 | disposition home or self-care (01) ==
LOC: HO.PT 08:47
PROVIDERS: PCP Internal Medicine; Visit Provider Otolaryngology
DX: H81.4 Vertigo of central origin (principal)
CPT/HCPCS: 97112; 97161

== ENCOUNTER 2023-05-23 13:00 | Outpatient (REF) | payer BC, MEDICAID, SELFPAY ==
--- NOTE | ~2023-05-23 | MR_ITS ---
EXAMINATION: MR CERVICAL SPINE WITHOUT CONTRAST CLINICAL INFORMATION: Left hemiparesis. COMPARISON: None. TECHNIQUE: Multiplanar, multisequential imaging of the cervical spine was performed without contrast. FINDINGS: VERTEBRAL BODIES AND PARASPINAL SOFT TISSUES: The marrow signal is within normal limits. There are no compression fractures or subluxations. Rightward curvature of the cervical spine noted. The paraspinal soft tissues appear normal. The vertebral artery flow-voids are maintained. The visualized lung apices are grossly clear. CERVICOMEDULLARY JUNCTION AND VISUALIZED POSTERIOR FOSSA: The craniovertebral junction and imaged portions of the brain parenchyma appear normal. No cord signal abnormality or syrinx is seen. SPINAL LEVELS: C2-C3: No disc pathology, central canal stenosis, or foraminal narrowing. C3-C4: Mild diffuse disc bulge and endplate spurring with mild facet arthropathy on the left side. No central canal stenosis. Moderate left foraminal narrowing. C4-C5: Mild posterior disc bulge without central canal stenosis. Patent foramina. C5-C6: Shallow disc bulge and uncovertebral joint spurring. No central canal stenosis. Mild right foraminal narrowing. C6-C7 and C7-T1: No significant disc pathology. No central canal stenosis or foraminal narrowing. MR/MR cervical spine wo con IMPRESSION: Rightward curvature of the cervical spine with mild multilevel spondylitic changes. No focal disc protrusion or central canal stenosis. Moderate left foraminal narrowing at the C3-C4 level.
== END 2023-05-23 13:01 | disposition home or self-care (01) ==
LOC: HO.MRI 13:00
PROVIDERS: PCP Internal Medicine; Visit Provider Psychiatry & Neurology Neurology
DX: G81.94 Hemiplegia, unspecified affecting left nondominant side (principal)
CPT/HCPCS: 72141

== ENCOUNTER 2024-01-15 14:13 | Outpatient (AMB) | payer BC, MEDICAID, SELFPAY ==
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
[2024-01-15 14:25] VITALS: BP 112/68; PULSE 86; O2SAT 97
== END 2024-01-15 14:57 | disposition home or self-care (01) ==
PROVIDERS: PCP Internal Medicine; Visit Provider Student in an Organized Health Care Education/Training Program
DX: G90.50 Complex regional pain syndrome I, unspecified (principal); R76.8 Other specified abnormal immunological findings in serum
CPT/HCPCS: 99213

== ENCOUNTER → 2024-01-15 14:13 | Outpatient (BNVA) | payer BC, MEDICAID, SELFPAY | PROVIDERS: PCP Internal Medicine; Visit Provider Student in an Organized Health Care Education/Training Program ==

== ENCOUNTER 2025-05-28 09:28 | Outpatient (AMB) | payer OTHER, SELFPAY ==
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
[2025-05-28 09:33] VITALS: BP 102/76; PULSE 82; O2SAT 93; BMI 23.9
--- OUTSIDE RECORDS SUMMARY | 2025-05-28 10:35 | XMS_ITS | Encounter Summary ---
Author Organization [facility] Address [address] [place] [phone] Phone Care Team Providers Care Gambreler Helper Name Role Phone Berenice Lopez MD Primary Care Provider [phone] Encounter Details Date Type Department Care Team (Late st Contact Info) Description 05/27/2025 Telephone [facility], Department of Neurology [address] [place] [address] Rainer Sage [address] [place] [id number] [email or web address] Social History Tobacco Use Types Packs/Day Years Used Date Smoking Tobacco: Never Smokeless Tobacco: Never Education Answer Date Recorded Are you interested in more education? Not on chapincito e 06/24/2023 Are you concerned about learning? Not on file 06/24/2023 No 06/24/2023 No 06/24/2023 Digital Access Answer Date Recorded No 06/24/2023 No 06/24/2023 Reliable internet access at home? Not on file 06/24/2023 Device with a working camera? Not on file Comments Unknown Sex and Gender Information Value Date Recorded Sex Assigned at Female 06/12/2023 12:51 PM EDT Legal Sex Female 12:42 PM EDT Gender Identity Female 06/12/2023 12:51 PM EDT Sexual Orientation Straight 06/12/2023 12 :51 PM EDT documented as of this encounter Progress Notes * Rainer Sage - 05/27/2025 12:07 PM EDT Confirmed 06/09 1:[address] Silvestre with Jeri documented in this encounter Plan of Treatment Upcoming Encounters Date Type Department Care Team (Late st Contact Info) Description 06/09/2025 1:30 PM EDT Telemedicine [facility], Department of Neurology [address] [place] [address] Sandro Silvestre MD [address] [facility] [address] [place] [address] [email or web address] 07/26/2025 2:00 PM EST Office Visit [facility] Pain Management [address] [facility] [address] [place] [address] Clare Gutierrez MD [address] [facility] Department of Anesthesiology-[address] [place] [address] [email or web address] documented as of this encounter Visit Diagnoses Not on filedocumented in this encounter Care Teams Gambreler Helper Relationship Specialty Start Date End Date Berenice Lopez MD [address] [place] [phone] PCP - General Internal Medicine 06/12/23 documented as of this encounter Additional Source Comments The information contained in this document represents components of the legal health record. It is not the complete legal health record.[facility]
--- OUTSIDE RECORDS SUMMARY | 2025-05-28 10:35 | XMS_ITS | Encounter Summary ---
Author Organization [employer] Address [address] [place] [address] Care Team Providers Care Public Relations Director Name Role Phone Berenice Lopez MD Primary Care Provider [phone] Reason for Visit * Reason Onset Date Comments VNA 05/13/2025 Encounter Details Date Type Department Care Team ([facility] Contact Info) Description 05/13/2025 Telephone Adult Medicine [address] [phone] Norm Ceja LPN Social History Tobacco Use Types Packs/Day Years Used Date Smoking Tobacco: Never Passive Smoke Exposure: Never Smokeless Tobacco: Never Alcohol Use Standard Drinks/Week Comments No 0 (1 standard drink = 0.6 oz pur e alcohol) Housing Instability Answer Date Recorde d Are you worried that in the next 2 months you may not have stable housing? No 03/19/2025 Food Access & Nutrition Answer Date Rec orded Do you have access to a vari ety of food including fruits and vegetables? No 03/19/2025 Health Literacy Answer Date Recorded How often do you need to hav e someone help you when you read instructions, pamphlets, or other written material from your doctor or pharmacy? Never 03/19/2025 Caregiver: How often do you need to have someone help you when you read instructions, pamphlets, or other written material from your doctor or pharmacy? Not on file 03/19/2025 Financial Risk Answer Date Recorded How hard is it for you to pa y for the very basics like food, housing, medical care, and air conditioning / heating? Not very hard 03/19/2025 Transportation Answer Date Recorded Has the lack of transportati on kept you from meetings, work, or from getting things needed for daily living? No Has the lack of transportati on kept you from medical appointments or from getting medications? No 03/19/2025 Social Isolation Answer Date Recorded How often do you feel lonely or isolated from th ose around you? Never 03/19/2025 Food Risk Answer Date Recorded Within the past 12 months we worried whether our food would run out before we got money to buy more. Never true 03/19/2025 Within the past 12 months th e food we bought just didn't last and we didn't have money to get more. Never true 03/19/2025 Dependent Care Answer Date Recorded Do you need help finding or paying for care for your loved ones. For example, child protective investigator or elderly care for an older adult? No 03/19/2025 Education Answer Date Recorded Do you think completing more education or training, like finishing a GED, going to college, or learning a trade, would be helpful for you? No 03/19/2025 Employment and Income Answer Date Recor ded During the last four weeks, have you been actively looking for work? No 03/19/2025 Living Situation Answer Date Recorded What is your living situation? Unrecognized valu e 03/19/2025 Comments No Sex and Gender Information Value Date Recorded Sex Assigned at Not on file Legal Sex Female 2:59 AM EST Gender Identity Not on file Sexual Orientation Not on file documented as of this encounter Progress Notes * Norm Ceja LPN - 05/26/2025 12:18 PM EDT Faxed signed order to [id number] fax conformation received * Lay Romo RN - 05/26/2025 11:28 AM EDT Redirecting to A coordinator * Cristal Osborn - 05/26/2025 9:57 AM EDT Mary calling on order status, she needs this signed and faxed back [facility] FAX: [phone] * Norm Ceja LPN - 05/13/2025 3:03 PM EDT Faxed order [facility] [phone] [id number] on providers desk for signature documented in this encounter Plan of Treatment Upcoming Encounters Date Type Department Care Team (Late st Contact Info) Description 06/03/2025 10:30 AM EDT Office Visit [facility] - [address] [phone] Berenice Lopez MD [address] [place] [address] 06/03/2025 1:15 PM EDT Office Visit Orthopedics - [address] [phone] Arturo Lambert PA [address] [place] [phone] 07/07/2025 1:45 PM EST Office Visit Urogynecology - [address] [phone] Trinity Sebastian MD [address] [place] [address] [place] [address] documented as of this encounter Goals Goal Patient Goal Type Associated Problems Recent Progress Patient-Stated? Author [employer] TECHNICIAN General On track(2024 2:22 PM EDT) No Yojana Anderson, [employer] AND [employer]KER TECHNICIAN Note: Pt will improve speech intelligibility for sentences to communicate and participate in higher level ADLs mod I T[employer]KER TECHNICIAN STGs General On track(2024 2:22 PM EDT) No Yojana Anderson, T[employer] AND D[employer] MAKER TECHNICIAN Note: Pt will participate with development of personalized HEP to perform 4-5xs/wk with min assist for modifications Pt will participate in ongoing training re dysarthria and compensatory techniques to maximize speech intelligibility Pt will assist with creation of personalized script of 20+words, phrases and sentences that she commonly uses and read them aloud with 80% ac in barrier task Pt will use chunking strategy with min assist in automatic speech and phrase level tasks given visual and verbal model for improved phonation and respiration documented as of this encounter Visit Diagnoses Not on filedocumented in this encounter Additional Health Concerns Assessment Noted Time PHQ-9 Depression Total Score: 0 03/19/20 25 1:24 PM EDT documented as of this encounter Care Teams Public Relations Director Relationship Specialty Start Date End Date Berenice Lopez MD [address] [place] [phone] PCP - General Internal Medicine 06/30/24 documented as of this encounter
--- OUTSIDE RECORDS SUMMARY | 2025-05-28 10:35 | XMS_ITS | Clinical Summary ---
Author Organization 175 [facility] Address [address] [place] [address] Phone Care Team Providers Care Vegetables Cook Name Role Phone Berenice Lopez MD Primary Care Provider [phone] Allergies Active Allergy Reactions Criticality Noted Date Comments Other 12/17/2016 Pollen Extracts Dry Eye 02/18/2025 Medications carbidopa-levodopa (SINEMET) 25-100 mg per tablet TAKE ONE TABLET BY MOUTH THREE TIMES A DAY AT 8AM, NOON, AND 4PM 4 Active cetirizine (ZyrTEC) 10 mg tablet Take 0.5 Tablets by mouth daily. 4 Active gabapentin (NEURONTIN) 300 mg capsule Take 1 tab at night for leg pain. 4 Active LORazepam (ATIVAN) 1 mg tablet Take 1 tablet (1 mg total) by mouth 2 (two) times a day. 1 Active cholecalciferol (VITAMIN D-3) 50 mcg (2,000 unit) tablet Take 1 tablet (2,000 Units total) by mouth 1 (one) time each day. 90 tablet 5 Active doxepin (SINEquan) 75 mg capsule Take 1 capsule (75 mg total) by mouth at bedtime as needed for sleep. 5 Active solifenacin (VESICARE) 5 mg tabletIndications: bladder hyperactivity Take 1 tablet (5 mg total) by mouth 1 (one) time each day. Swallow tablet whole; do not crush, chew, or split. 30 tablet 2 5 08/10/20 25 Active Active Problems Problem Noted Date Diagnosed Date Urinary incontinence in female 05/12/2025 Overview (05/12/2025): 05/12/2025- Urogynecology consult Discussed etiology of her urinary incontinence. Has multifactorial causes, predominantly diagnosis of Parkinson's disease which precipitated onset of these storage symptoms, as well as limitations in mobility leading functional component of her leakage. Treatment plan: Start solifenacin 5 mg RTC in 6 -8 weeks Orthostatic hypotension 03/10/2025 Positive MIGUEL (antinuclear antibody) 04/11/2022 Low back pain 02/16/2022 Overview (06/30/2024): Last Assessment & Plan: Patient describes pain radiating from her upper back down to her lumbar spine, difficulty walking, pain more recently starting in the right lateral leg down to the ankle, sometimes will get numbness tingling in the foot. She has chronic left distal leg numbness from the knee down, left leg weakness. In the past Dr. Hsu wanted to try conservative treatment options first, potentially consider L5-S1 fusion if she was not getting better. Her lumbar spine MRI 2021 showed varying degrees of disc desiccation from L3-S1 with an annular tear at L4-5 and moderate loss of disc height at L5-S1 with moderate bilateral foraminal stenosis. She had lower extremity EMG/NCS study 08/19/2023 at [facility] that was normal. Ms. Young has persistent back and leg symptoms, however the L5-S1 DDD does not seem to be her primary issue at this time. The L5-S1 degenerative disc disease would not be contributing to her left arm and leg weakness, she has left iliopsoas weakness predominantly. She is seeing neurology for workup of Parkinson's disease. I told her we can follow-up with this in the future, at this point I will not order an updated lumbar spine MRI but we can consider it in the future. Assessment & Plan (07/24/2024 6:23 PM EST): Patient still reports some back pain and stiffness but did have improvement with a lumbar injection with Dr. Fischer per patient. She feels that she is standing and walking crooked, tilting her body to the right side. She reports that her right leg has pain, feels weak when she gets up, had a fall 2 weeks ago and now has right knee pain as well. Patient had lumbar spine MRI ordered by Dr. Fischer 07/08/2024 at [facility] that shows L4-5 DJD, some loss of disc height L5-S1 >L4-5. No significant stenosis noted. I reviewed MRI images with patient and her on the computer. Patient has already submitted her PT form to [facility] follow-up for low back pain that was given to her by Dr. Fischer. I asked her to follow-up or call with an update afterward. She may want to try aquatic physical therapy and I can give her that prescription. I did not see any significant findings on the lumbar spine MRI that will likely need surgery in the near future. We talked about trying acupuncture as well. I will call to get notes from Dr. Fischer see what injection she has had so far. All questions answered. Neck pain 02/16/2022 Overview (06/30/2024): Last Assessment & Plan: Patient follows up in the office for neck pain, low back pain, headaches, left- sided weakness. She had been seen in the past with minimal findings on cervical MRI, no surgery was recommended at that time. Patient states in the last 2 years her daily neck pain and stiffness have continued to get worse she would rate her pain 9/10, has difficulty looking left and right. She also describes left arm weakness, limited functioning, she can use the left arm for example to open a door but cannot feed herself. She is able to walk short distances but needs to take breaks along the way, at most would try walking the hallway in our office. She has been using a cane for about 1 year, they recently bought her a wheelchair and a lift chair. She describes burning pain and headaches that radiate up the back of the head and sometimes to the top of the head and eyes, x 6-9 months. She was prescribed duloxetine and sumatriptan by her neurologist in [place] for migraines. 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 She states for the last year she has had changes in her voice and handwriting. She has been seeing Dr. Silvestre at [facility] neurology for possible Parkinson's disease, he felt she had enough symptoms compatible with Parkinson's to start her on Sinemet. Patient states she has the medicine but has not started it yet, was waiting for an official diagnosis of Parkinson's disease first. She has an appointment with him coming up in May. His note also mentions getting a Syn One skin biopsy, DaTscan, swallow eval. Patient states she has not heard back with appointments for these tests, has tried to call but cannot get through to anyone. Patient had C-spine MRI February 2022 with minimal degenerative findings, no cord compression, no signal change in the spinal cord, no disc herniations or nerve root compression. She had brain MRI 2021 that was normal. Ms. Young has worsening neck pain, pain on the left lateral shoulder and upper arm, possibly tendinitis but we can get updated C-spine MRI. When I palpate the lower occipital region she states that her area of tenderness, where some of her headaches originate from and radiate up the back of her head, we will schedule her to see physiatry for occipital nerve block, see if it helps some of her headaches. We can try physical therapy for her neck, including massage and TENS unit to see if that helps some of the neck spasm. I recommended patient's start the Sinemet that was recommended by neurology so she will see if she has any improvements prior to going in to see him in May. I reached out to Dr. Silvestre's office, they will have his MA reach out to patient to schedule appointments for tests mentioned above. Assessment & Plan (07/24/2024 6:25 PM EST): Patient completed physical therapy for her neck pain, still feels she has neck stiffness. Her symptoms are somewhat complicated due to her possible Parkinson's disease, currently getting workup, biopsy pending. Sees neurology in [place]. States they might be referring her to a specialty clinic for movement disorders and Parkinson's disease. She has noted some improvement in her strength and movement with Sinemet. She reports issues with speech, would like to go for speech therapy. Neurology also ordered formal swallow eval for her swallowing difficulties. Patient reports approximately 70% improvement with occipital nerve block and states she no longer gets the daily headache she had before, neurology notes mention she did get maybe 1 to 2 weeks improvement. They feel her headaches are migraine related, put her on sumatriptan, duloxetine. C-spine MRI 04/06/2024 overall looked good, she had mild left C3-4 disc bulging with moderate foraminal stenosis, otherwise no significant findings, healthy disc, no signal change in the spinal cord. Patient currently is starting physical therapy for her low back pain, gait. We talked about trying aquatic physical therapy when she completes her current PT. She is interested in this, information provided, will call me when she is ready for prescription. She also requested prescription for speech therapy, which I provided, she would like to do it locally versus out in [place] where her neurologist is located. She has follow-up with her neurologist in a couple months, is waiting on biopsy results. Seasonal allergic rhinitis 07/04/2021 RLS (restless legs syndrome) 12/17/2016 Anxiety 01/31/2015 Vitamin D deficiency 05/14/2013 Parkinsonism ([facility] V24, [facility] V28) Overview (03/10/2025): DX:Parkinsonism ([facility]); COMMENT: getting W/U for Parkinson's disease [facility]/ [facility] neurology Encounters Date Type Department Care Team Description 05/13/2025 Telephone Adult Medicine [address] [phone] Norm Ceja LPN 05/13/2025 Telephone Adult Medicine [address] [phone] Norm Ceja LPN 05/12/2025 2:00 PM EDT Office Visit Urogynecology - [address] [phone] Trinity Sebastian MD OAB (overactive bladder) (Primary Dx); Neurogenic bladder; Other constipation; Stress incontinence 04/30/2025 Telephone Adult Medicine [address], [place] [phone] Berenice Lopez MD 04/21/2025 Telephone Adult [address] [phone] Berenice Lopez MD 04/07/2025 Telephone Adult [address] [phone] Berenice Lopez MD 04/06/2025 1:00 PM EDT Office Visit Orthopedics [address] [phone] Arturo Lambert PA Derangement of right knee (Primary Dx); Recurrent pain of right knee 04/02/2025 Telephone Neurosurgery [facility] [address] [phone] Kika Zelaya PA 03/25/2025 Telephone Adult [address] [phone] Randi Law ID 03/24/2025 Telephone Adult Medicine [address] [phone] Amarilys Darling ID 03/22/2025 Telephone Adult Medicine [address] [phone] Berenice Lopez MD 03/19/2025 1:00 PM EDT Office Visit Adult [address] [phone] Berenice Lopez MD PE (physical exam), annual (Primary Dx); Screening for tuberculosis 03/18/2025 Telephone Adult Medicine [address] [phone] Berenice Lopez MD 03/17/2025 1:45 PM EDT - 03/17/2025 11:59 PM EDT Hospital [facility] Pulmonary [address] [place] [address] LIZARRAGA (dyspnea on exertion) Discharge Disposition: Home or Self Care 03/16/2025 Telephone Adult [address] [phone] Berenice Lopez MD 03/11/2025 Telephone Adult [address] [phone] Amarilys Darling ID 03/10/2025 9:00 AM EDT Office Visit [address] [phone] Berenice Lopez MD Hospital discharge follow-up (Primary Dx); Parkinson's disease with dyskinesia and fluctuating manifestations (CMS/HCC V24, CMS/HCC V28); Orthostatic hypotension 03/10/[address] [phone] Berenice Lopez MD 03/05/[address] [phone] Berenice Lopez MD 03/04/[address] [phone] Berenice Lopez MD 03/04/[address] [phone] Berenice Lopez MD 03/02/2025 [place] Adult [address] [phone] Berenice Lopez MD 03/01/[address] [phone] Berenice Lopez MD from Last 3 Months Immunizations Immunization Administration Dates Next Due Influenza trivalent, 0.5mL, preservative free (Fluarix; FluLaval; Fluzone) ages 6mo and older (Afluria) 3 years and older 07/08/2018 Td, Unspecified 12/15/1996 Tdap Tetanus diptheria acell ular pertussis (Boostrix; Adacel) 7yo and older 03/19/2025,05/14/2013 Surgical History Surgery Date Site/Laterality Comments SECTION PROCEDURE: HISTORICAL DELIVERY TUBAL LIGATION 08/12/1992 PROCEDURE: HISTORICAL TUBAL LIGATION COLONOSCOPY 01/27/2021 PROCEDURE: HISTORICAL COLONOSCOPY; COMMENT: Diverticulosis, no polyps. Medical History Medical History Date Comments ASCUS of cervix with negativ e high risk HPV 09/30/2019 DX:ASCUS of cervix with nega tive high risk HPV Anxiety state DX:Anxiety state Benign paroxysmal vertigo of both ears DX:Benign paroxysmal vertigo of both ears Positive MIGUEL (antinuclear antibody) DX:Positive MIGUEL (antinuclear antibody) Loss of sensation DX:Loss of sen sation Difficulty balancing DX:Difficul ty balancing Parkinsonism (CMS/HCC V24, C MS/HCC V28) DX:Parkinsonism ([facility]); COMME NT: getting W/U for Parkinson's disease [facility] neurology Family History Medical History Relation Name Comments Diabetes Father Other cancer Father melanoma Hypertension Other all siblings an d parents Other: thyroid cancer Sister 1 Hyperthyroidism Sister 2 Breast cancer Neg Hx Cancer of Small Bowel Neg Hx Colon cancer Neg Hx Kidney cancer Neg Hx Ovarian cancer Neg Hx Pancreatic cancer Neg Hx Uterine cancer Neg Hx Relation Name Status Comments Brother Alive Father Mother Alive Other Sister 1 Alive Sister 2 Social History Tobacco Use Types Packs/Day Years Used Date Smoking Tobacco: Never Passive Smoke Exposure: Never Smokeless Tobacco: Never Tobacco Cessation:Counseling Given: Not Answered Alcohol Use Standard Drinks/Week Comments No 0 [...] care for your loved ones. For example, childbirth and infant care teacher or elderly care for an older adult? [...] on file Sexual Orientation Not on file Obstetrics History Para Term AB IAB SAB Ectopic Multiple Livin g Live Births 2 2 2 2 Date Outcome GA Total Labor Labor/2nd/3rd Weight Sex Type Anes PTL Soo A1 A5 Name Clin Term Term Last Filed Vital Signs Vital Sign Reading Time Taken Comments Blood Pressure 112/88 05/12/2025 2:10 PM EDT Pulse 72 05/12/2025 2:10 PM EDT Temperature 36.9 C (98.4 F) 03/19/2025 1:12 PM EDT Respiratory Rate 16 04/06/2025 1:18 PM EDT Oxygen Saturation 96% 03/19/2025 1:12 PM EDT Inhaled Oxygen Concentration - - Weight 53.1 kg (117 lb) 05/12/2025 2:10 PM EDT Height 149.9 cm (4' 11 ) 05/12/2025 2:10 PM EDT Body Mass Index 23.63 05/12/2025 2:10 PM EDT Plan of Treatment Upcoming Encounters Date Type Department Care Team (Late st Contact Info) Description 06/03/2025 10:30 AM EDT Office Visit Adult Medicine [place] [address] [phone] Berenice Lopez MD [address] [place] [address] 06/03/2025 1:15 PM EDT Office Visit Orthopedics - [address] [phone] Arturo Lambert PA [address] [place] [phone] 07/07/2025 1:45 PM EST Office Visit Urogynecology - [address] [phone] Trinity Sebastian MD [address] [place] [address] [address] [place] [address] Health Maintenance Due Date Last Done Comments Hepatitis B Vaccines (1 of 3 - 19+ 3-dose series) 1989 Pneumococcal Vaccine: 50+ Years (1 of 1 - PCV) 01/19/2020 Zoster Vaccines (1 of 2) 01/19/2020 COVID-19 Vaccine (1 - 2023-2 5 season) 2025 Influenza Vaccine (#1) 2025 07/08/2018 Social Influencers of Health Screening 03/19/2026 03/19/2025 Breast Cancer Screening 07/17/2026 07/17/20 24, 02/09/2023 Cervical Cancer Screening: HPV 01/24/2028 0 01/23/2025, 07/24/2023 Colorectal Cancer Screening: Colonoscopy 01/27/2031 01/27/2021, 01/27/2021 DTaP,Tdap,and Td Vaccines (4 - Td or Tdap) 03/19/2035 03/19/2025, 05/14/2013, 12/15/1996 RSV Immunization Adult Patients (1 - 1-dose 75+ series) 2045 HIV Screening Completed 10/11/2019 Hepatitis C Screening Completed 07/24/2023 Depression Screening Completed 03/19/2025 HIB Vaccines Aged Out No longer eligi ble based on patient's age to complete this topic HPV Vaccines Aged Out No longer eligi ble based on patient's age to complete this topic Hepatitis A Vaccines Aged Out No long er eligible based on patient's age to complete this topic IPV Vaccines Aged Out No longer eligi ble based on patient's age to complete this topic MMR Vaccines Aged Out No longer eligi ble based on patient's age to complete this topic Meningococcal ACWY Vaccine Aged Out N o longer eligible based on patient's age to complete this topic Meningococcal B Vaccine Aged Out No l onger eligible based on patient's age to complete this topic RSV Immunization Patients Under 20 months Aged Out No longer eligible b ased on patient's age to complete this topic Varicella Vaccines Aged Out No longer eligible based on patient's age to complete this topic Goals Goal Patient Goal Type Associated Problems Recent Progress Patient-Stated? Author CARD CLOTHIER LTG General On track(2024 2:22 PM EDT) No Yojana Anderson, CARD CLOTHIER Note: Pt will improve speech intelligibility for sentences to communicate and participate in higher level ADLs mod I CARD CLOTHIER STGs General On track(2024 2:22 PM EDT) No Yojana Anderson, CARD CLOTHIER Note: Pt will participate with development of [...] verbal model for improved phonation and respiration Procedures Procedure Name Priority Date/Time Associated Diagnosis Comments POC URINE AUTO W/O MICRO Routine 05/12/2025 2:57 PM EDT OAB (overactive bladder) LA ARTHROCENTESIS/ASPIRATI ON/INJECTION MAJOR JOINT/BURSA W/O U/S GUIDANCE Routine 04/06/2025 1:00 PM EDT Derangement of right knee Recurrent pain of right knee INTERFERON GAMMA INTERPRETATION Routine 03/19/2025 2:06 PM EDT Screening for tuberculosis INTERFERON GAMMA ANTIGEN 2 Routine 03/19/2025 2:06 PM EDT Screening for tuberculosis INTERFERON GAMMA ANTIGEN 1 Routine 03/19/2025 2:06 PM EDT Screening for tuberculosis INTERFERON GAMMA MITOGEN Routine 03/19/2025 2:06 PM EDT Screening for tuberculosis INTERFERON GAMMA NIL Routine 03/19/2025 2:06 PM EDT Screening for tuberculosis CBC WITH AUTO DIFFERENTIAL Routine 03/19/2025 2:06 PM EDT PE (physical exam), annual INTERFERON GAMMA FOR TB, QUALITATIVE Routine 03/19/2025 2:06 PM EDT Screening for tuberculosis COMPREHENSIVE METABOLIC PANEL Routine 03/19/2025 2:06 PM EDT PE (physical exam), annual CBC AND DIFFERENTIAL Routine 03/19/2025 2:06 PM EDT PE (physical exam), annual HC SPIROMETRY BRONCHODILATION RESPONSIVENESS PRE/POST BRONCHODILATOR ADMINISTRATION Routine 03/17/2025 2:24 PM EDT LIZARRAGA (dyspnea on exertion) MG MAMMO DIGITAL SCREENING W CHAMP BILAT Routine 07/17/2024 2:06 PM EST Encounter for screening mammogram for malignant neoplasm of breast HM HPV Routine 07/24/2023 HEPATITIS C SCREENING Routine 07/24/2023 COLONOSCOPY Routine 01/27/2021 HIV SCREENING Routine 10/11/2019 from Last 3 Months or Most Recently Relevant to Health Maintenance Results * POC Urine Auto W/O Micro (05/12/2025 2:57 PM EDT) Glucose UA POC Negative Negative, Trace mg/dL Bilirubin UA POC Negative Negative Ketones UA POC Negative Negative Specific [place] UA POC 1.020 Blood UA POC Negative Negative PH UA POC 6.0 Protein UA POC Negative Negative mg/dL Urobilinogen UA POC 0.2 E.U./dL 0.2 E.U./dL, 1.0 E.U./dL, 8 , Unable to interpret due to interfering substances mg/dL Nitrite UA POC Negative Negative Urine Urine specimen obtained by clean catch procedure / Unknown 05/12/2025 2:57 PM EDT us Trinity Sebastian MD POINT OF CARE TEST ENTER/EDIT O RDERABLES Final Result * LA ARTHROCENTESIS/ASPIRATION/INJECTION MAJOR JOINT/BURSA W/O U/S GUIDANCE (04/06/2025 1:00 PM EDT) Arturo Blackwood PA - 04/06/2025 1:00 PM EDT HAYES Hinkle 04/06/2025 1:51 PM L Inj/Asp: R knee Indications: pain Details: 22 G needle, anterolateral approach Medications: 4 mL lidocaine 1 %; 80 mg methylPREDNISolone acetate 80 mg/mL Outcome: tolerated well, no immediate complications Informed Consent: Site: Knee Laterality: Right Relevant images/test results available and reviewed: yes Health status cleared: Yes Procedure/treatment, purpose, treatment alternatives, risks/potential complications and benefits explained: yes Risk/complications/benefits details: Risks include but are not limited to: The treatment may not accomplish the desired results. Additionally bleeding, infection, damage to tendon, nerve, cartilage, muscle; thinning or lightening of the skin in the area of injection; flushing or redness of the face, elevated blood pressure or blood sugar, allergic reaction, rash, increased pain Benefits include relief of inflammation and pain Patient questions answered: yes Patient agrees, verbalizes understanding, and wants to proceed: yes Consent given by: Patient Informed consent discussion completed by Physician/DANETTE with patient: Verbal Pre-procedure timeout performed: yes us Arturo KOO IN CLINIC/BEDSIDE ORDERABLES Fin al Result * Interferon gamma interpretation (03/19/2025 2:06 PM EDT) [facility] Signature Quantiferon Plus Interpretation Negative Negative LAB CHEMISTRY METHOD 03/21/2025 11:32 AM EDT [facility] Blood Venous blood specimen / Unknown Venipuncture / Unknown 03/19/2025 2:06 PM EDT 03/19/2025 2:06 PM EDT us Berenice Lopez MD LAB BLOOD ORDERABLES Final Resul t Performing Organization Address City/[facility]/ZIP Co de Phone Number [facility] [address] [place] [address], * Interferon gamma antigen 2 (03/19/2025 2:06 PM EDT) Blood Venous blood specimen / Unknown Venipuncture / Unknown 03/19/2025 2:06 PM EDT 03/19/2025 2:06 PM EDT us Berenice Lopez MD LAB BLOOD ORDERABLES Final Resul t Performing Organization Address City/[facility] Co de Phone Number [facility] [address] [place] [address], [place] [phone] * Interferon gamma antigen 1 (03/19/2025 2:06 PM EDT) Blood Venous blood specimen / Unknown Venipuncture / Unknown 03/19/2025 2:06 PM EDT 03/19/2025 2:06 PM EDT us Berenice Lopez MD LAB BLOOD ORDERABLES Final Resul t [facility] [address] [place] [address], [place] [phone] * Interferon gamma mitogen (03/19/2025 2:06 PM EDT) Blood Venous blood specimen / Unknown Venipuncture / Unknown 03/19/2025 2:06 PM EDT 03/19/2025 2:06 PM EDT us Berenice Lopez MD LAB BLOOD ORDERABLES Final Resul t Performing Organization Address [facility] Co de Phone Number [facility] [address] [place] [address], [place] [phone] * Interferon gamma NIL (03/19/2025 2:06 PM EDT) Blood Venous blood specimen / Unknown Venipuncture / Unknown 03/19/2025 2:06 PM EDT 03/19/2025 2:06 PM EDT us Berenice Lopez MD LAB BLOOD ORDERABLES Final Resul t Performing Organization Address [facility] de Phone Number [facility] [address] [place] [address], [place] [phone] * (ABNORMAL) CBC auto differential (03/19/2025 2:06 PM EDT) [facility] Signature WBC 5.2 4.8 - 10.8 K/[facility] LAB HEMETOLOGY METHOD 03/19/2025 4:49 PM EDT [facility] RBC 3.40(L) 3.80 - 4.80 M/[facility] LAB HEMETOLOGY METHOD 03/19/2025 4:49 PM EDT [facility] Hemoglobin 10.6(L) 11.5 - 16.0 g/dL LAB HEMETOLOGY METHOD 03/19/2025 4:49 PM EDT [facility] Hematocrit 34.8(L) 35.0 - 47.0 % LAB HEMETOLOGY METHOD 03/19/2025 4:49 PM EDT [facility] MCV 102.4(H) 79.0 - 98.0 FL LAB HEMETOLOGY METHOD [facility]/19[facility]25 [facility] MCH 31.2 27.0 - 32.0 pcg LAB HEMETOLOGY METHOD 03/19/2025 4[facility] MCHC 30.5(L) 32.0 - 37.0 g/dL LAB HEMETOLOGY METHOD 03/19/2025 4:[facility] RDW 13.4 11.0 - 15.0 % LAB HEMETOLOGY METHOD 03/19/2025 4:[facility] Platelets 257 130 - 400 K/mcL LAB HEMETOLOGY METHOD 03/19/2025 4:[facility] MPV 9.9 7.0 - 11.0 FL LAB HEMETOLOGY METHOD 03/19/2025 4:[facility] NRBC 0.0 <1.0 % LAB HEMETOLOGY METHOD 03/19/2025 4:49 PM [facility] NRBC Absolute 0.00 <0.10 K/mcL LAB HEMETOLOGY METHOD 03/19/2025 4:49 PM [facility] Neutrophils Relative 53.2 % LAB HEMETOLOGY METHOD 03/19/2025 4:49 PM [facility] Lymphocytes Relative 32.4 % [facility] Monocytes Relative 10.1 % LAB HEMETOLOGY METHOD 03/19[facility]2025 [facility] Eosinophils Relative 3.3 % LAB HEMETOLOGY METHOD 03/19[facility]2025 [facility] Basophils Relative 0.6 % LAB HEMETOLOGY METHOD 03/19/2025 4:49 PM EDT [facility] Immature Granulocytes Relative 0.4 % LAB HEMETOLOGY METHOD 03/19/2025 4:49 PM EDT [facility] Neutrophils Absolute 2.74 1.50 - 7.00 K/mcL LAB HEMETOLOGY METHOD 03/19/2025 4:49 PM EDT [facility] Lymphocytes Absolute 1.67 1.00 - 5.00 K/mcL LAB HEMETOLOGY METHOD 03/19/2025 4:49 PM EDT [facility] Monocytes Absolute 0.52 0.20 - 1.00 K/mcL LAB HEMETOLOGY METHOD 03/19/2025 4:49 PM EDT [facility] Eosinophils Absolute 0.17 0.00 - 0.50 K/mcL LAB HEMETOLOGY METHOD 03/19/2025 4:49 PM EDT [facility] Basophils Absolute 0.03 0.00 - 0.20 K/mcL LAB HEMETOLOGY METHOD 03/19/2025 4:49 PM EDT [facility] Immature Granulocytes Absolute 0.02 0.00 - 0.03 K/mcL LAB HEMETOLOGY METHOD 03/19/2025 4:49 PM EDT [facility] Blood Venous blood specimen / Unknown Venipuncture / Unknown 03/19/2025 2:06 PM EDT 03/19/2025 2:06 PM EDT us Berenice Lopez MD LAB BLOOD ORDERABLES Final Resul t [facility] [address] [place] [address], * (ABNORMAL) Comprehensive metabolic panel (03/19/2025 2:06 PM EDT) Sodium 141 133 - 145 mmol/L LAB CHEMISTRY METHOD 03/19/2025 5:16 PM [facility] Potassium 4.1 3.5 - 5.5 mmol/L LAB CHEMISTRY METHOD 03/19/2025 5:16 PM [facility] Chloride 110 96 - 110 mmol/L LAB CHEMISTRY METHOD 03/19/2025 5:16 PM [facility] CO2 29 21 - 32 mmol/L LAB CHEMISTRY METHOD 03/19/2025 5:16 PM [facility] Anion Gap 2(L) 3 - 11 LAB CHEMISTRY METHOD 03/19/2025 5:16 PM [facility] Glucose 109(H) 70 - 100 mg/dL LAB CHEMISTRY METHOD 03/19/2025 5:16 PM [facility] BUN 20 5 - 25 mg/dL LAB CHEMISTRY METHOD 03/19/2025 5:16 PM [facility] Creatinine 0.77 0.50 - 1.10 mg/dL LAB CHEMISTRY METHOD 03/19/2025 5:16 PM [facility] eGFR 91 >=60 mL/min/1. 73m2 LAB CHEMISTRY METHOD 03/19/2025 5:16 PM [facility] Comment:Calculation based on the Chronic Kidney Disease Epidemiology Collaboration (CKD-EPI) equation refit without adjustment for race. BUN/Creatinine Ratio 26.0 LAB CHEMISTRY METHOD 03/19/2025 5:16 PM [facility] Calcium 9.0 8.5 - 10.5 mg/dL LAB CHEMISTRY METHOD 03/19/2025 5:16 PM [facility] AST (SGOT) 14 10 - 42 unit/L LAB CHEMISTRY METHOD 03/19/2025 5:16 PM [facility] ALT (SGPT) 10 10 - 60 unit/L LAB CHEMISTRY METHOD 03/19/2025 5:16 PM [facility] Alkaline Phosphatase 63 42 - 121 unit/L LAB CHEMISTRY METHOD 03/19/2025 5:16 PM EDT [facility] Total Protein 6.8 6.0 - 8.0 g/dL LAB CHEMISTRY METHOD 03/19/2025 5:16 PM EDT [facility] Albumin 3.6 3.2 - 5.0 g/dL LAB CHEMISTRY METHOD 03/19/2025 5:16 PM EDT [facility] Total Bilirubin 0.4 0.0 - 1.4 mg/dL LAB CHEMISTRY METHOD 03/19/2025 5:16 PM EDT [facility] Blood Venous blood specimen / Unknown Venipuncture / Unknown 03/19/2025 2:06 PM EDT 03/19/2025 2:06 PM EDT us Berenice Lopez MD LAB BLOOD ORDERABLES Final Resul t [facility] [address] [place] [address], [place] [phone] * Pulmonary function testing: Carbon Monoxide Diffusing Capacity, Nitrogen Wash Out, Spirometry with Bronchodilator, Vital Capacity Test (03/17/2025 2:24 PM EDT) Narrative [place] Foss MD - 03/18/2025 1:53 AM EDT Table formatting from the original result was not included. Images from the original result were not included. [facility] [address] [place] [address] Pulmonary Functions Report Date of service: 03/17/25 Patient Name: Coreen Young Date of : 1970 Age: 55 y.o. Gender: female Ordering Provider: [place] Foss MD Diagnosis listed on Order: LIZARRAGA (dyspnea on exertion) Reason for Exam: Order Questions Answers Reason for Exam: dyspnea Which PFTs would you like to perform? Carbon Monoxide Diffusing Capacity,Nitrogen Wash Out,Spirometry with Bronchodilator,Vital Capacity Test Pulmonary Test Finding: Spirometry/ Flow Volume Loop: FEV1 is 1.54 at 75 % of predicted., FVC is 71 % of predicted. , FEV1/FVC ratio is 87 % of predicted. Spirometry Post Bronchodilator Response: No bronchodilator response. Lung Volumes: TLC is 37 % of predicted. RV is 12 % of predicted. RV/TLC is is 33 % of predicted. Diffusion Capacity: DLCO is 54 % of predicted (Adjusted DLCO is 55 %). DLCO/VA is 102 % of predicted. Quality of Study: Meets ATS criteria for acceptability and repeatability Refer to scanned report for all additional results and graphs. Interpretation/Impression: No obstruction. Severe restriction with moderate decrease in diffusion. Findings consistent with severe restrictive lung disease. ally signed by [place] Foss MD on 03/18/25 at 1:48 AM EDT us [place] Foss MD PFT ORDERABLES Final Result * MG Mammo Digital Screening w Champ bilat (07/17/2024 2:06 PM EST) Anatomical Region Laterality Modality Breast Bilateral Mammography 07/17/2024 6:53 PM EST Impressions 07/17/2024 6:56 PM EST No mammographic evidence of malignancy. BREAST DENSITY: B - There are scattered areas of fibroglandular density. BI-RADS CATEGORY: 1 - NEGATIVE RECOMMENDATION: Screening bilateral mammogram is recommended in 1 year. MAMMO LOCATION: [facility], [address] [place] [address], [address], . -------- FINAL REPORT -------- Dictated By: Jazmine Gordillo Dictated Date: 07/17/2024 18:53 ET Assigned Physician: Jazmine Gordillo Reviewed and Electronically Signed By: Jazmine Gordillo Signed Date: 07/17/2024 18:56 ET Workstation ID: [id number] Transcribed By: Self Edit Transcribed Date: 07/17/2024 18:53 ET Narrative 07/17/2024 6:56 PM EST EXAM: Screening Mammogram CLINICAL: 54 years old, Female, routine annual exam. COMPARISON: 02/09/2023 and as far back as 10/06/2020 TECHNIQUE: Bilateral MLO and CC views were obtained digitally with 3-D mammogram (digital breast tomosynthesis). Computer-aided detection was utilized in evaluation of this exam (CAD). Patient in a wheelchair with very limited mobility. Difficult to optimally position for imaging. Images obtained are the best possible. FINDINGS: No new suspicious mass, architectural distortion, or suspicious calcifications. Procedure Note Jazmine Gordillo MD - 07/17/2024 EXAM: Screening Mammogram CLINICAL: 54 years old, Female, routine annual exam. COMPARISON: 02/09/2023 and as far back as 10/06/2020 TECHNIQUE: Bilateral MLO and CC views were obtained digitally with 3-Dmammogram (digital breast tomosynthesis). Computer-aided detection wasutilized in evaluation of this exam (CAD). Patient in a wheelchair withvery limited mobility. Difficult to optimally position for imaging.Images obtained are the best possible. FINDINGS: No new suspicious mass, architectural distortion, or suspiciouscalcifications. IMPRESSION: No mammographic evidence of malignancy. BREAST DENSITY: B - There are scattered areas of fibroglandular density. BI-RADS CATEGORY: 1 - NEGATIVE RECOMMENDATION: Screening bilateral mammogram is recommended in 1 year. MAMMO LOCATION: [facility], [address] [place] [address], [facility], . -------- FINAL REPORT -------- Dictated By: Jazmine Gordillo Dictated Date: 07/17/2024 18:53 ET Assigned Physician: Jazmine Gordillo Reviewed and Electronically Signed By: Jazmine Gordillo Signed Date: 07/17/2024 18:56 ET Workstation ID: [id number] Transcribed By: Self Edit Transcribed Date: 07/17/2024 18:53 ET Berenice Lopez MD IMG BI PROCEDURES Final Result * Cervical Cancer Screening: HPV (07/24/2023) [facility] Cervical Cancer Screening: HPV negative, abstracted Historical Provider HEALTH MAINTENANCE Final Result * Hepatitis C Screening (07/24/2023) [facility] Hepatitis C Screening abstracted Historical Provider HEALTH MAINTENANCE Final Result * Colonoscopy (01/27/2021) Colonoscopy no interpretation , abstracted Anatomical Region Laterality Modality Other Historical Provider HEALTH MAINTENANCE Final Result * HIV Screening (10/11/2019) HIV Screening abstracted Historical Provider HEALTH MAINTENANCE Final Result from Last 3 Months or Most Recently Relevant to Health Maintenance Insurance [facility] [employer] Care Teams Vegetables Cook Relationship Specialty Start Date End Date Berenice Lopez MD [address] [place] [address] PCP - General Internal Medicine 06/30/24
--- OUTSIDE RECORDS SUMMARY | 2025-05-28 10:35 | XMS_ITS ---
Author Name [facility] Organization Unknown Care Team Organization Name Specialty Phone Email Start Date End Da te [facility] Berenice Lopez Primary Care 11/13/2022 024 [facility] Micky Trejo Primary Care 08/20/202203/12 [facility] Suzie, PROVIDER Primary Care 06/19/202203/12
--- OUTSIDE RECORDS SUMMARY | 2025-05-28 10:35 | XMS_ITS | Clinical Summary ---
Author Organization [facility] Address [facility] [employer] [address] [address] Phone Care Team Providers Care Supervisor Accounting Clerks Name Role Phone Berenice Lopez MD Primary Care Provider [phone] Allergies No known active allergies Medications cetirizine (ZYRTEC) 10 MG tablet Take 0.5 tablets by mouth every morning. 4 Active cholecalciferol (VITAMIN D3) 2,000 unit tablet Take 1 tablet by mouth every morning. 4 Active cloNIDine HCL (CATAPRES) 0.2 MG tablet Take 1 tablet by mouth every morning. 4 Active LORazepam (ATIVAN) 1 MG tablet Take 1 tablet by mouth 2 (two) times a day. 4 Active IBU 800 mg tablet Take 800 mg by mouth every 8 (eight) hours as needed. 4 Active SUMAtriptan (IMITREX) 50 MG tabletIndications :Intractable migraine without aura and with status migrainosus Take 1 tablet (50 mg total) by mouth once as needed for migraine. Can repeat dose in 2 hours if needed. Do not exceed 2 doses in a 24 hour period. Max dose 200mg/ day 9 tablet 11 4 Active pregabalin (LYRICA) 50 MG capsule Take 1 capsule by mouth 2 (two) times a day. 4 Active carbidopa-levodop a (SINEMET) 25-100 mg per tabletIndications :Parkinsonism, unspecified Parkinsonism type TAKE TWO TABLETS BY MOUTH THREE TIMES A DAY (8:00AM,NOON AND 4:00PM) 180 tablet 3 5 Active carbidopa-levodop a (SINEMET CR) 25-100 mg per CR tablet Take 1 tablet by mouth 3 (three) times a day. Take along with immediate-re lease Sinemet. 270 tablet 2 Active Hospital, Clinic, or Other Facility Administered Medication Ordered Dose Route Frequency Start Date End Date Status botulinum toxin type A (BOTOX) injection 200 Units 200 Units IM Once 02/15/2025 05/16/2025 Ended botulinum toxin type A (BOTOX) injection 0-200 Units 0 - 200 Units IM Once 05/10/2025 05/10/2025 Ended Active Problems No known active problems Encounters Date Type Department Care Team Description 05/27/2025 Telephone [facility], Department of Neurology [address] [place] [address] Rainer Sage 05/10/2025 3:00 PM EDT Office Visit [facility] Pain Management [address] [place] [address] Clare Gutierrez MD Chronic migraine without aura, with intractable migraine, so stated, with status migrainosus 04/01/2025 11:30 AM EDT Office Visit [facility] Pain Management [address] [place] [address] Earnestine Rudd MD, PhD Primary osteoarthritis of both knees (Primary Dx); Chronic migraine without aura, with intractable migraine, so stated, with status migrainosus 04/01/2025 Orders Only [facility] Pain Management [address] [address] Samaria Da Silva Other chronic pain (Primary Dx) 03/25/2025 Telephone [facility], Department of Neurology [address] [place] [address] Bethanie Arias MD Medication Management from Last 3 Months Social History Tobacco Use Types Packs/Day Years Used Date Smoking Tobacco: Never Smokeless Tobacco: Never Tobacco Cessation:Counseling Given: Not Answered Education Answer Date Recorded Are you interested [...] Orientation Straight 06/12/2023 12 :51 PM EDT Last Filed Vital Signs Vital Sign Reading Time Taken Comments Blood Pressure 192/87 05/10/2025 2:45 PM EDT Pulse 71 05/10/2025 2:45 PM EDT Temperature 36.6 C (97.9 F) 11/03/2024 1:45 PM EDT Respiratory Rate 16 11/03/2024 1:45 PM EDT Oxygen Saturation 95% 05/10/2025 2:45 PM EDT Inhaled Oxygen Concentration - - Weight 58.1 kg (128 lb) 04/01/2025 11:30 AM EDT Height - - Body Mass Index - - Plan of Treatment Upcoming Encounters Date Type Department Care Team (Late st Contact Info) Description 06/09/2025 1:30 PM EDT Telemedicine [facility], Department of Neurology [address] [place] [address] Sandro Silvestre MD [address] [address] [place] [id number] [email or web address] 07/26/2025 2:00 PM EST Office Visit [facility] Pain Management [address] [facility] [address] [place] [address] Clare Gutierrez MD [address] [place] [address] Department of Anesthesiology-CWN [address] [place] [address] [email or web address] Maintenance Due Date Last Done Comments HEPATITIS C SCREENING 01/19/1988 HIV ONE-TIME SCREENING (18-6 5 YEARS) 01/19/1988 PAP SMEAR 1991 COLOGUARD 2015 COLONOSCOPY 2015 COLORECTAL CANCER SCREENING 2015 FIT TEST 2015 FOBT 2015 SIGMOIDOSCOPY 2015 VIRTUAL COLONOSCOPY 2015 PNEUMOCOCCAL VACCINES (50+ years) (1 of 1 - PCV) 01/19/2020 ZOSTER VACCINES (1 of 2) 01/19/2020 LIPID PANEL 10/10/2024 10/11/2019 INFLUENZA VACCINE (#1) 2025 07/08/2018 COVID-19 VACCINE ( - 2024-2 6 season) 2025 DEPRESSION SCREENING 11/03/2025 11/03/2024 MAMMOGRAM 07/17/2026 07/17/2024, 07/17/2024 Adult Td,Tdap Booster 03/19/2035 03/19/2025 , 05/14/2013 RSV VACCINE (1 - 1-dose 75+ series) 2045 SMOKING STATUS SCREENING (On ce After 26 Yrs) Completed 11/03/2024 HEPATITIS A VACCINES Aged Out No long er eligible based on patient's age to complete this topic HIB VACCINES Aged Out No longer eligi ble based on patient's age to complete this topic MENINGOCOCCAL VACCINES (ACWY) Aged Out No longer eligible based on patient's age to complete this topic MENINGOCOCCAL VACCINES (B) Aged Out N o longer eligible based on patient's age to complete this topic Medical Devices Not on file Insurance [facility] [employer] [place] [address] [place] [address] [employer] [facility] [employer] Member Subscriber Plan / Payer (Ef fective 2024-Present) Name:Jeri Jeffrey Relation to Subscriber:Self Name:Jeri Jeffrey Payer ID:[id number] Group ID:[id number] Type:Medicaid Address: [place] [id number] [facility] Care Teams Supervisor Accounting Clerks Relationship Specialty Start Date End Date Berenice Lopez MD [address] [place] [id number] PCP - General Internal Medicine 06/12/23 Additional Source Comments The information contained in this document represents components of the legal health record. It is not the complete legal health record.[facility]
--- OUTSIDE RECORDS SUMMARY | 2025-05-28 10:35 | XMS_ITS | Encounter Summary ---
Author Organization [employer] Address [address] [place] [address] Care Team Providers Care Cylinder Machine Operator Name Role Phone Berenice Lopez MD Primary Care Provider [phone] Encounter Details Date Type Department Care Team (Latest Contact Info) Description 01/22/2025 Lab Requisition [facility] - Main Lab [address] [facility] [place] [phone] Dakotah Singh MD [address] [facility] [address] [place] [phone] Encounter for gynecological examination (general) (routine) without abnormal findings Social History Tobacco Use Types Packs/Day Years Used Date Smoking Tobacco: Never Smokeless Tobacco: Never Alcohol Use Standard Drinks/Week Comments No 0 (1 standard drink = 0.6 oz pur e alcohol) Comments No Sex and Gender Information Value Date Recorded Sex Assigned at Not on file Legal Sex Female 2:59 AM EST Gender Identity Not on file Sexual Orientation Not on file documented as of this encounter Plan of Treatment Upcoming Encounters Date Type Department Care Team (Late st Contact Info) Description 06/03/2025 10:30 AM EDT Office Visit Adult Medicine [address] [phone] Berenice Lopez MD [address] [place] [address] 06/03/2025 1:15 PM EDT Office Visit [facility]oped[facility] - [place] [address] [place], [place] [phone] Arturo Lambert PA [address] [place] [phone] 07/07/2025 1:45 PM EST Office Visit Urogynecology - [place] [address] [place], [place] [phone] Trinity Sebastian MD [address] [facility] [address] [place] [address] documented as of this encounter Goals Goal Patient Goal Type Associated Problems Recent Progress Patient-Stated? Author FARO DEALER LTG General On track(2024 2:22 PM EDT) No Yojana Anderson, FARO DEALER Note: Pt will improve speech intelligibility for sentences to communicate and participate in higher level ADLs mod I FARO DEALER STGs General On track(2024 2:22 PM EDT) No Yojana Anderson, FARO DEALER Note: Pt will participate with development of [...] and respiration documented as of this encounter Procedures Procedure Name Priority Date/Time Associated Diagnosis Comments PAP SMEAR Routine 01/21/2025 12:00 AM EDT Encounter for gynecological examination (general) (routine) without abnormal findings documented in this encounter Results * Pap smear (01/21/2025 12:00 AM EDT) Interpretation Negative for intraepithelial lesion or malignancy 01/23/2025 8:35 AM EDT [facility] General Categorization Negative 01/23/2025 8:35 AM [facility] Specimen Adequacy Satisfactory for evaluation, endocervical/ybarra sformation zone component absent 01/23/2025 8:35 AM EDT [facility] Pap Methodology Liquid Based Pap Test 01/23/2025 8:35 AM EDT [facility] Disclaimer The Pap test is a screening test which carries an inherent false negative rate. These test results should be correlated with the patient's clinical findings and history. This Pap test was processed using an automated screening system. Technical cytopathology services provided by [facility], at [address] [place] [address] (CLIA # [id number]/Kolby Adrian MD, Account Manager Trainee.) 01/23/2025 8:35 AM EDT [facility] Console Pap Interpretation Reported 01/23/2025 8:35 AM [facility] Brushing/Spatula Cervix uteri structure / Unknown 01/21/2025 01/22/2025 7:43 AM EDT us Dakotah Singh MD LAB CYTOLOGY ORDERABLES Final Result [facility] [address] [place] [address], documented in this encounter Visit Diagnoses Diagnosis Encounter for gynecological examination (general) (routine) without abnormal findings documented in this encounter Care Teams Cylinder Machine Operator Relationship Specialty Start Date End Date Berenice Lopez MD [address] [place] [phone] PCP - General Internal Medicine 06/30/24 documented as of this encounter
== END 2025-05-28 10:16 | disposition home or self-care (01) ==
LOC: HO.HSMS 09:28
PROVIDERS: PCP Internal Medicine; Visit Provider Psychiatry & Neurology Neurology
DX: G20.A1 Parkinson's disease without dyskinesia, without mention of fluctuations (principal); G24.3 Spasmodic torticollis; G47.52 REM sleep behavior disorder; I95.1 Orthostatic hypotension; R51.9 Headache, unspecified; R06.83 Snoring; G47.10 Hypersomnia, unspecified
CPT/HCPCS: 99204

== ENCOUNTER → 2025-05-28 09:28 | Outpatient (BNVA) | payer OTHER, SELFPAY | PROVIDERS: PCP Internal Medicine; Visit Provider Psychiatry & Neurology Neurology | DX: G20.A1 Parkinson's disease without dyskinesia, without mention of fluctuations (principal); G24.3 Spasmodic torticollis; G47.52 REM sleep behavior disorder; I95.1 Orthostatic hypotension; R51.9 Headache, unspecified; R06.83 Snoring; G47.10 Hypersomnia, unspecified; M54.2 Cervicalgia | CPT/HCPCS: 99202 ==

== ENCOUNTER 2025-07-20 11:46 | Outpatient (AMB) | payer OTHER, SELFPAY ==
[2025-07-20 11:58] VITALS: BP 100/70; PULSE 62; O2SAT 99; BMI 23.4
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
== END 2025-07-20 12:35 | disposition home or self-care (01) ==
LOC: HO.HSMS 11:46
PROVIDERS: PCP Internal Medicine; Visit Provider Psychiatry & Neurology Neurology
DX: G20.A1 Parkinson's disease without dyskinesia, without mention of fluctuations (principal); G24.3 Spasmodic torticollis; G47.52 REM sleep behavior disorder; I95.1 Orthostatic hypotension; R51.9 Headache, unspecified; R06.83 Snoring; G47.10 Hypersomnia, unspecified
CPT/HCPCS: 99214

== ENCOUNTER → 2025-07-20 11:46 | Outpatient (BNVA) | payer OTHER, SELFPAY | PROVIDERS: PCP Internal Medicine; Visit Provider Psychiatry & Neurology Neurology | DX: G20.A1 Parkinson's disease without dyskinesia, without mention of fluctuations (principal); G24.3 Spasmodic torticollis; G47.52 REM sleep behavior disorder; I95.1 Orthostatic hypotension; R51.9 Headache, unspecified; R06.83 Snoring; G47.10 Hypersomnia, unspecified | CPT/HCPCS: 99212 ==